=== PATIENT | female | born 1970 | race Caucasian/White ===

== ENCOUNTER 2017-12-07 13:41 | Day surgery (SDC) | payer OTHER ==
[2017-12-07] MEDS ORDERED: MIDAZOLAM 1 MG/ML 2 ML INJ (16:53)
[2017-12-07] MEDS ORDERED: PROPOFOL 20 ML ×2 (16:53→17:23)
[2017-12-07] MEDS ORDERED: FENTAnyl 50 MCG/ML VIAL (16:53)
== END 2017-12-07 19:05 | disposition home or self-care (01) ==
LOC: GIL 13:41
DX: Z12.11 Encounter for screening for malignant neoplasm of colon (principal); D12.3 Benign neoplasm of transverse colon; K64.8 Other hemorrhoids; F41.9 Anxiety disorder, unspecified
CPT/HCPCS: 45380; 84703; 88305